=== PATIENT | female | born 1955 | race Caucasian/White ===

== ENCOUNTER 2024-06-27 06:25 | Day surgery (SDC) | payer MEDICARE, SELFPAY | END 2024-06-27 14:32 | disposition home or self-care (01) | LOC: GI 06:25 | PROVIDERS: ATTENDING PHYSICIAN Internal Medicine | DX: Z12.11 Encounter for screening for malignant neoplasm of colon (principal); K64.8 Other hemorrhoids; K57.30 Diverticulosis of large intestine without perforation or abscess without bleeding; D12.3 Benign neoplasm of transverse colon; D12.4 Benign neoplasm of descending colon | CPT/HCPCS: 45385; 45380; 88305 ==

== ENCOUNTER → 2024-09-30 06:43 | Outpatient (REF) | payer MEDICARE, SELFPAY | LOC: PAVMRI 06:43 | PROVIDERS: ATTENDING PHYSICIAN Physician Assistant; FAMILY PHYSICIAN Nurse Practitioner | DX: M25.551 Pain in right hip (principal) | CPT/HCPCS: 73721 ==

== ENCOUNTER 2025-02-11 06:19 | Day surgery (SDC) | payer MEDICARE, SELFPAY | END 2025-02-11 11:29 | disposition home or self-care (01) | LOC: GI 06:19 | PROVIDERS: ATTENDING PHYSICIAN Internal Medicine | DX: R12 Heartburn (principal); K29.60 Other gastritis without bleeding | CPT/HCPCS: 43239; 88305; 88342 ==